=== PATIENT | male | born 1980 | race Caucasian/White ===

== ENCOUNTER 2021-08-16 10:51 | Emergency (ER) | payer BC ==
[2021-08-16 11:30] VITALS: TEMP 98.8; BMI 27.8
[2021-08-16 12:23] LABS: HEMATOCRIT 45.8 % (35.4-49); HEMOGLOBIN 16.1 G/dL (11.7-16.9); MCH 30.4 pg (25.7-33.7); MCHC 35.1 g/dl (32.0-35.9); MEAN CELL VOLUME 86.8 fl (80-96); MEAN PLT VOLUME 9.6 fl (7.5-11.1); PLATELET COUNT 206.6 10^3/uL (134-434); RBC 5.28 10^6/uL (4.00-5.60); RDW 13.5 % (11.9-15.9); WHITE BLOOD COUNT 7.4 10^3/uL (4.0-10.8)
[2021-08-16 12:29] LABS: ALBUMIN 4.7 g/dl (3.4-5.0); BILIRUBIN,TOTAL 1.1 mg/dl (0.2-1); CALCIUM 9.6 mg/dl (8.5-10); CREATININE 0.9 mg/dl (0.55-1.3); TOT PROT 7.4 g/dl (6.4-8.2)
[2021-08-16 13:05] VITALS: BP 124/68; PULSE 75
== END 2021-08-16 13:24 | disposition home or self-care (01) ==
LOC: FER 10:51
DX: R07.9 Chest pain, unspecified (principal)
CPT/HCPCS: 36415; 71046-TC-FY; 80053; 84443; 84484; 85027; 93005; 99285-25